=== PATIENT | male | born 1940 | race Caucasian/White ===

== ENCOUNTER 2017-03-04 07:51 | Emergency (ER) | payer OTHER ==
[2017-03-04 07:59] VITALS: O2SAT 95
[2017-03-04] MEDS ORDERED: DIAZEPAM 10 MG/2 ML SYR IVP ONE (08:29)
[2017-03-04 08:38] LABS: PLATELET COUNT 161 10^3/uL (150-400)
[2017-03-04] MEDS ORDERED: NS 1,000 ML IV ONE (08:38)
--- NOTE | 2017-03-04 08:44 | EDPHY ---
H & P Time Seen by Provider: 03/04/17 08:03 HPI/ROS: CHIEF COMPLAINT: Severe thigh pain HISTORY OF PRESENT ILLNESS: 76-year-old male presents to the emergency department with severe pain his left thigh. The patient had micro diskectomy at L1 L3-3 days ago. He was doing well until the following evening when he developed pain in his left thigh. Pain is excruciating when he tries to bear weight in the left leg. He not have any bowel or bladder incontinence. States that he was up frequently urinating throughout the night, however he has no dysuria or hematuria. He did not have a Mejia catheter with surgery 3 days ago. No fevers or chills. He does not feel weak in his lower legs. He has been taking the pain medication as prescribed. He had a normal bowel movement yesterday. Has had multiple back surgeries and has never had this type of feeling postoperatively. He had a Reuben Saenz drain that was removed yesterday with very little fluid. There is no drainage from the dressing. No chest or difficulty breathing. Denies feeling weak. REVIEW OF SYSTEMS: Constitutional: No fever, no chills. Eyes: No double or blurry vision. ENT: No sore throat. Respiratory: No cough, no shortness of breath. Cardiac: No chest pain. Gastrointestinal: No abdominal pain, vomiting or diarrhea. Genitourinary: No dysuria. Musculoskeletal: No neck or back pain. Skin: No rashes. Neurological: No headache. Past Medical/Surgical History: Multiple back surgery including microdiskectomy 3 days ago L1-[address] Miah Pritchard, orthopedic surgeries Social History: Smoking Status: Never smoked Physical Exam: General Appearance: Alert, no distress. Eyes: Pupils equal and round. Extraocular motions are all intact. ENT: Mouth: Mucous membranes moist. Respiratory: No wheezing, rhonchi, or rales, lungs are clear to auscultation. Cardiovascular: Regular rate and rhythm. Gastrointestinal: Abdomen is soft and nontender, no masses, no rebound or guarding, bowel sounds normal. Neurological: Alert and oriented x 3, cranial nerves II through XII grossly intact Skin: Warm and dry, no rashes. Musculoskeletal: Nontender to palpate along the cervical, thoracic or lumbar spine. Neck is supple. Extremities: Full range of motion and no peripheral edema. No pain with straight leg raise. No pain with external or internal rotation of the left leg. Normal and equal strength for the lower extremities bilaterally. He has more hyper reflexive on the left care to the right. He has normal sensation to light touch with normal 2 point discrimination. There is no obvious swelling or pedal edema noted in his left lower extremity. Psychiatric: Patient is oriented X 3, there is no agitation. Constitutional: Initial Vital Signs Temperature (C) 36.8 C 03/04/17 07:55 Heart Rate 75 03/04/17 07:55 Respiratory Rate 18 03/04/17 07:55 Blood Pressure 159/83 H 03/04/17 07:55 O2 Sat (%) 95 03/04/17 07:55 O2 Delivery Mode Room Air Allergies/Adverse Reactions: No Allergies [NKDA] Allergy (Verified 03/04/17 07:54) Home Medications: Medication Instructions Recorded ALPRAZolam [Xanax] 1 mg PO HS 06/29/10 Aspirin [Aspirin 81mg] 81 mg PO DAILY 06/29/10 Acetaminophen [Tylenol Tablet] 1,000 mg PO Q8 02/27/13 Cholecalciferol Vit D3 [Vitamin D3 1,000 units PO Q2D 02/27/13 1000 units (OTC)] Coenzyme Q10 [Co Q-10 30 mg (OTC)] 30 mg PO DAILY 02/27/13 Glucosamine Sulfate 1,000 mg PO BID 02/27/13 Multivitamins [Tab-A-Gunner] 1 each PO Q2D 02/27/13 Commerce-3 Fatty Acids/Fish Oil [Fish 1 each PO DAILY 02/27/13 Oil 1,000 mg Capsule] Psyllium Husk (with Sugar) 1 each PO DAILY 02/27/13 [Metamucil Packet] Diazepam [Valium] 5 mg PO TIDPRN PRN #15 tab 03/04/17 Flomax 03/04/17 Keflex 03/04/17 LYRICA 03/04/17 Oxycodone HCl 03/04/17 Medical Decision Making - Diagnostics Imaging Results: Imaging Impressions Extremity Venous Study 03/04/17 08:29 Impression: No deep venous thrombosis left leg. Results called and discussed with Calli Arevalo PA-C, at 03/04/2017 9:14. Ultrasound of the left lower extremity reveals no evidence of DVT. This was reported to me by Dr. Hall at 9:15 a.m.. Imaging: Discussed imaging studies w/ bingo caller Radiologist ED Course/Re-evaluation: 76-year-old male presents to the emergency department with severe left thigh pain. He had recent back surgery by Dr. Mati macias the since heel. Patient denies any known trauma or injury. He has pain especially when he tries to bear weight. I spoke with Dr. Munir Lauren, on-call neurosurgeon, who did not recommend repeating the MRI of the patient's lumbar spine. He recommended obtaining ultrasound to make sure the patient does not have a DVT. CBC and chemistries were unremarkable. Urinalysis reveals no signs of infection. The patient was given 2.5 mg of IV Valium. He was feeling better. He was able to ambulate. I did offer admission to the hospital, however the patient declined. He like to be discharged home with follow-up as an outpatient with Dr. Miah Pritchard. Differential Diagnosis: Back pain including but not limited to muscular pain, herniated disc, spine fracture, intra-abdominal causes and urinary tract infection. - Data Points Laboratory Results: Laboratory Results 03/04/17 08:30 03/04/17 08:30 03/04/17 03/04/17 03/04/17 08:47 08:30 08:30 WBC 9.08 10^3/uL 10^3/uL (3.80-9.50) RBC 4.83 10^6/uL 10^6/uL (4.40-6.38) Hgb 16.0 g/dL g/dL (13.7-17.5) POC Hgb Hct 42.7 % % (40.0-51.0) POC Hct MCV 88.4 fL fL (81.5-99.8) MCH 33.1 pg pg (27.9-34.1) MCHC 37.5 g/dL H g/dL (32.4-36.7) RDW 12.5 % % (11.5-15.2) Plt Count 161 10^3/uL 10^3/uL (150-400) MPV 8.7 fL fL (8.7-11.7) Neut % (Auto) 78.4 % H % (39.3-74.2) Lymph % (Auto) 11.5 % L % (15.0-45.0) [place] % (Auto) 8.5 % % (4.5-13.0) Eos % (Auto) 0.7 % % (0.6-7.6) Baso % (Auto) 0.6 % % (0.3-1.7) Nucleat RBC Rel Count 0.0 % % (0.0-0.2) Absolute Neuts (auto) 7.13 10^3/uL H 10^3/uL (1.70-6.50) Absolute Lymphs (auto) 1.04 10^3/uL 10^3/uL (1.00-3.00) Absolute Monos (auto) 0.77 10^3/uL 10^3/uL (0.30-0.80) Absolute Eos (auto) 0.06 10^3/uL 10^3/uL (0.03-0.40) Absolute Basos (auto) 0.05 10^3/uL 10^3/uL (0.02-0.10) Absolute Nucleated RBC 0.00 10^3/uL 10^3/uL (0-0.01) Immature Gran % 0.3 % % (0.0-1.1) Immature Gran # 0.03 10^3/uL 10^3/uL (0.00-0.10) POC Sodium Sodium 137 mEq/L mEq/L (134-144) POC Potassium Potassium 3.7 mEq/L mEq/L (3.5-5.2) POC Chloride Chloride 102 mEq/L mEq/L (97-110) Carbon Dioxide 24 mEq/l mEq/l (22-31) Anion Gap 11 mEq/L mEq/L (8-16) POC BUN BUN 15 mg/dL mg/dL (7-23) Creatinine 0.8 mg/dL mg/dL (0.7-1.3) POC Creatinine Estimated GFR > 60 Glucose 123 mg/dL H mg/dL (70-100) POC Glucose Calcium 9.2 mg/dL mg/dL (8.5-10.4) Urine Color YELLOW Urine Appearance CLEAR Urine pH 6.0 (5.0-7.5) Ur Specific [place] 1.017 (1.002-1.030) Urine Protein NEGATIVE (NEGATIVE) Urine Ketones NEGATIVE (NEGATIVE) Urine Blood NEGATIVE (NEGATIVE) Urine Nitrate NEGATIVE (NEGATIVE) Urine Bilirubin NEGATIVE (NEGATIVE) Urine Urobilinogen NEGATIVE EU EU (0.2-1.0) Ur Leukocyte Esterase NEGATIVE (NEGATIVE) Urine RBC 1-3 /hpf /hpf (0-3) Urine WBC 1-3 /hpf /hpf (0-3) Ur Epithelial Cells NONE SEEN /lpf /lpf (NONE-1+) Urine Mucus TRACE /lpf /lpf (NONE-1+) Urine Glucose NEGATIVE (NEGATIVE) 03/04/17 08:27 WBC RBC Hgb POC Hgb 15.0 gm/dL gm/dL (13.7-17.5) Hct POC Hct 44 % % (40-51) MCV MCH MCHC RDW Plt Count MPV Neut % (Auto) Lymph % (Auto) [place] % (Auto) Eos % (Auto) Baso % (Auto) Nucleat RBC Rel Count Absolute Neuts (auto) Absolute Lymphs (auto) Absolute Monos (auto) Absolute Eos (auto) Absolute Basos (auto) Absolute Nucleated RBC Immature Gran % Immature Gran # POC Sodium 138 mEq/L mEq/L (134-144) Sodium POC Potassium 3.5 mEq/L mEq/L (3.3-5.0) Potassium POC Chloride 101 mEq/L mEq/L (97-110) Chloride Carbon Dioxide Anion Gap POC BUN 14 mg/dL mg/dL (7-23) BUN Creatinine POC Creatinine 0.8 mg/dL mg/dL (0.7-1.3) Estimated GFR Glucose POC Glucose 134 mg/dL H mg/dL (70-100) Calcium Urine Color Urine Appearance Urine pH Ur Specific Deb[place] Urine Protein Urine Ketones Urine Blood Urine Nitrate Urine Bilirubin Urine Urobilinogen Ur Leukocyte Esterase Urine RBC Urine WBC Ur Epithelial Cells Urine Mucus Urine Glucose Medications Given: Discontinued Medications Diazepam (Valium Injection) 2.5 mg IVP EDNOW ONE Stop: 03/04/17 08:30 Last Admin: 03/04/17 08:57 Dose: 2.5 mg Sodium Chloride (Ns) 1,000 mls @ 0 mls/hr IV ONCE ONE PRN Reason: Wide Open Stop: 03/04/17 08:39 Last Admin: 03/04/17 08:58 Dose: 1,000 mls Point of Care Test Results: 03/04/17 08:27 POC Sodium 138 POC Potassium 3.5 POC Chloride 101 POC BUN 14 POC Creatinine 0.8 POC Glucose 134 H Departure - Departure Disposition: Home, Routine, Self-Care Clinical Impression: Left thigh pain Condition: Good Instructions: Musculoskeletal Pain (ED) Additional Instructions: Valium 2.5 - 5 mg every 8 hr as needed for pain. Follow up tomorrow or Sunday with Dr. Miah Pritchard. Return to the emergency department if he developed worsening pain, numbness or tingling in your toes, feelings of weakness in her legs, bowel or bladder incontinence, or if you feel worse in any way. Referrals: CARLINE MARRERO [Other] - As per Instructions Miah Pritchard MD [Medical Doctor] - 1-2 days without fail Prescriptions: Diazepam [Valium] 5 mg PO TIDPRN PRN #15 tab PRN Reason: P.r.n. spasms
[2017-03-04 10:57] VITALS: BP 178/86; PULSE 68; RESP 16; TEMP 99
== END 2017-03-04 11:12 | disposition home or self-care (01) ==
PROC: 3E0337Z Introduction of Electrolytic and Water Balance Substance into Peripheral Vein, Percutaneous Approach (ICD-10-PCS; principal; 2017-03-04)
DX: M79.652 Pain in left thigh (principal); Z79.82 Long term (current) use of aspirin
CPT/HCPCS: 82947-QW

== ENCOUNTER 2017-03-08 09:00 | Day surgery (SDC) | payer OTHER ==
[2017-03-08] MEDS ORDERED: MIDAZOLAM 2 MG/2 ML VIAL IVP PRN (09:39)
[2017-03-08] MEDS ORDERED: HEPARIN 10,000 UNIT/10 ML MDV IVP PRN (09:39)
[2017-03-08] MEDS ORDERED: GLUCAGON HCL 1 MG VIAL IVP PRN (09:39)
[2017-03-08] MEDS ORDERED: FLUMAZENIL 0.5 MG/5 ML MDV IVP PRN (09:39)
[2017-03-08] MEDS ORDERED: ALTEPLASE 2 MG VIAL IVP PRN (09:39)
[2017-03-08] MEDS ORDERED: MEPERIDINE 25 MG/ML SYR IVP PRN (09:39)
[2017-03-08] MEDS ORDERED: NALOXONE HCL 0.4 MG/ML INJ IVP PRN (09:39)
[2017-03-08] MEDS ORDERED: PROTAMINE SULFATE 50 MG/5 ML VIAL IVP PRN (09:39)
[2017-03-08] MEDS ORDERED: fentaNYL 100 MCG/2 ML INJ IVP PRN (09:39)
[2017-03-08] MEDS ORDERED: NS 1,000 ML IV SCH (09:45)
[2017-03-08] MEDS ORDERED: MIDAZOLAM 2 MG/2 ML VIAL ONE ×2 (09:51→12:01)
[2017-03-08] MEDS ORDERED: FLUMAZENIL 0.5 MG/5 ML MDV IVP ONE (09:51)
[2017-03-08] MEDS ORDERED: NALOXONE HCL 0.4 MG/ML INJ ONE (09:51)
[2017-03-08] MEDS ORDERED: ONDANSETRON 4 MG/2 ML VIAL ONE (09:51)
[2017-03-08] MEDS ORDERED: fentaNYL 100 MCG/2 ML INJ ONE ×2 (09:52→12:01)
[2017-03-08 10:05] LABS: INR 1.06 (0.83-1.16)
--- NOTE | 2017-03-08 10:50 | PDGENHP ---
History & Physical Chief Complaint: Left thigh pain History of Present Illness: 76 yo M w LBP s/p L1-3 microdiscectomy/ hemilaminectomy 1 wk ago. Did well immediately post-op but developed excruciating left thight pain 2-3 days afterwards. Improves when he lies on his thigh. MRI 03/05/17 demonstrated small collection and mass effect on the left thecal sac at L2-3 level, as well as a midline superficial subq collection from L1-3. Asp and/or drainage of both collections requested by KONSTANTIN Whitley. Pertinent Past, Social, Family History: Non-contributory Relevant Physical Exam: Numbness along anterior thights, which pt says is his baseline (not new) Cardiorespiratory Assessment: RRR, normal resp effort
--- NOTE | 2017-03-08 10:53 | PDPROPOC ---
Sedation Plan of Care Sedation Plan of Care: vital signs stable, mental status noted, patient educated of risks, benefits, alternatives, patient can tolerate sedation ASA Classification: ASA 3 Planned drugs: fentanyl, midazolam Mallampati Score: Class 2 Mallampati Reference Image: Patient passed 3-3-2 rule?: Yes
[2017-03-08] MEDS ORDERED: IOPAMIDOL (ISOVUE-300) 100 ML BTL ONE (12:01)
[2017-03-08 12:20] VITALS: O2SAT 96
[2017-03-08 13:07] VITALS: BP 117/76; PULSE 82; RESP 17
[2017-03-08] MEDS ORDERED: ONDANSETRON 4 MG/2 ML VIAL IVP PRN (13:10)
[2017-03-08] MEDS ORDERED: ACETAMINOPHEN 325 MG TAB PO PRN (13:10)
--- NOTE | 2017-03-08 13:10 | PDRADPN ---
Radiology Procedure Note Date of Procedure: 03/08/17 Radiologist: Narendra Bowden Anesthesia: IV Sedation Pre-op Diagnosis: Post-op fluid collections Post-op Diagnosis: Same Indication: Left thigh pain Procedure: 1. Aspiration Lt epidural collection; 2. Aspiration midline subq collection Finding(s): See dicated report Inf/Abcess present in the surg proc area at time of surgery?: No EBL: Minimal Complications: No immediate Specimen(s): 1. Several drops (< 1 mL) dark red material from Lt epidural collection mixed with 10 mL sterile saline; 2. 18 mL serosanginous material from midline subq collection
[2017-03-08 15:16] VITALS: TEMP 98.3
== END 2017-03-08 14:30 | disposition home or self-care (01) ==
LOC: FIMAGING 09:00
PROVIDERS: ATTEND Physician Assistant Surgical
PROC: 0J973ZX Drainage of Back Subcutaneous Tissue and Fascia, Percutaneous Approach, Diagnostic (ICD-10-PCS; principal; 2017-03-08 12:58)
PROC: 009T3ZX Drainage of Spinal Meninges, Percutaneous Approach, Diagnostic (ICD-10-PCS; principal; 2017-03-08 12:58)
DX: L76.82 Other postprocedural complications of skin and subcutaneous tissue (principal); G97.82 Other postprocedural complications and disorders of nervous system
CPT/HCPCS: J2250; J2310; J2405; J3010; Q9967

== ENCOUNTER → 2017-08-23 | Outpatient (CLI) | payer OTHER ==
--- NOTE | 2017-08-23 14:34 | CPEKG ---
Heart Rate: 64 RR Interval: 938 P-R Interval: 200 QRSD Interval: 98 QT Interval: 392 QTC Interval: 405 P Hidalgo: 17 QRS Hidalgo: -56 T Wave Hidalgo: 49 EKG Severity - ABNORMAL ECG - EKG Impression: SINUS ARRHYTHMIA, RATE 52-73 EKG Impression: LEFT ANTERIOR FASCICULAR BLOCK Electronically Signed By: Jorge Sommer 24-Aug-2017 08:44:14
== END ==
LOC: FCP 14:17
PROVIDERS: ATTEND Neurological Surgery
DX: Z01.812 Encounter for preprocedural laboratory examination (principal)

== ENCOUNTER → 2017-08-23 | Outpatient (CLI) | payer OTHER | LOC: EDSTATUS 13:47 → FIMAGING 13:47 | PROVIDERS: ATTEND Neurological Surgery | DX: Z01.811 Encounter for preprocedural respiratory examination (principal) ==

== ENCOUNTER 2017-08-30 13:51 | Inpatient (IN) | payer OTHER ==
[2017-08-30] MEDS ORDERED: MAGNESIUM HYDROXIDE 30 ML UDCUP PO PRN (15:35)
[2017-08-30] MEDS ORDERED: diphenhydrAMINE 25 MG CAP PO PRN (15:35)
[2017-08-30] MEDS ORDERED: BISACODYL 10 MG SUPP PR PRN (15:35)
[2017-08-30] MEDS ORDERED: LACTULOSE 20 GM/30 ML UDCUP PO PRN (15:35)
[2017-08-30] MEDS ORDERED: ONDANSETRON DISINTEGRATING 4 MG TAB PO PRN (15:35)
[2017-08-30] MEDS: POLYETHYLENE GLYCOL 3350 17 GM PKT PO SCH ×2 (17:41→21:36)
[2017-08-30] MEDS: ceFAZolin 2 GM/DEXTROSE 100 ML IV SCH ×2 (17:41→23:55)
[2017-08-30] MEDS ORDERED: ACETAMINOPHEN 500 MG TAB ONE (18:49)
[2017-08-30] MEDS: ACETAMINOPHEN 500 MG TAB PO SCH (18:51)
[2017-08-30] MEDS: TAMSULOSIN HCL 0.4 MG CAP PO SCH (21:35)
[2017-08-30] MEDS: SENNOSIDES/DOCUSATE SODIUM TAB PO SCH (21:35)
[2017-08-30] MEDS: ALPRAZolam 1 MG TAB PO SCH (21:35)
[2017-08-30] MEDS: FAMOTIDINE 20 MG TAB PO SCH (21:36)
[2017-08-30] MEDS: oxyCODONE IR 5 MG TAB PO PRN (21:50)
[2017-08-30] MEDS: METHOCARBAMOL 750 MG TAB PO PRN (21:50)
[2017-08-30] MEDS ORDERED: GABAPENTIN 300 MG CAP PO SCH (22:00)
[2017-08-30] MEDS: PREGABALIN 150 MG CAP PO SCH (22:16)
[2017-08-31 05:30] LABS: PLATELET COUNT 197 10^3/uL (150-400)
[2017-08-31] MEDS: ACETAMINOPHEN 500 MG TAB PO SCH ×3 (07:19→21:50)
[2017-08-31] MEDS: PREGABALIN 100 MG CAP PO SCH (09:30)
[2017-08-31] MEDS: SENNOSIDES/DOCUSATE SODIUM TAB PO SCH ×2 (09:32→21:49)
[2017-08-31] MEDS: FAMOTIDINE 20 MG TAB PO SCH ×2 (09:32→21:51)
[2017-08-31] MEDS: ENOXAPARIN 40 MG/0.4 ML SYR SC SCH (09:33)
[2017-08-31] MEDS: POLYETHYLENE GLYCOL 3350 17 GM PKT PO SCH ×3 (09:35→21:49)
--- NOTE | 2017-08-31 12:40 | NEUSURGPN ---
Assessment/Plan: 76 y/o male s/p L1/2 AGATA admitted from [facility] for pain control ad possible CSF leak POD1 -Keep HOB flatx5 days. Continue Mejia and use of bed pain. - MRI pending for new right IL weakness -Optimize pain management -DVT prophx: TEDs, SCDs, Lovenox -Please notify NS with any change in neuro/motor exam Subjective: low back pain, right leg weakness Objective: NAD A&Ox3 MAEx4 5/5 and equal in BUE and BLE. Incision c/d/i Catheter Insertion Date: 08/30/17 - Physician Discussed Patient with : [facility] Physical Exam - Vitals, I&O, Labs I and O 08/30/17 08/31/17 09/01/17 05:59 05:59 05:59 Intake Total 1300 Output Total 650 2200 Balance 650 -2200 Weight 88.451 kg Intake: Oral (ml) 1200 IV Infused (ml) 100 ceFAZolin 2 GM/DEXTROSE 100 100 ml @ 200 mls/hr IV [facility] Rx#:[id number] Output: Urine (ml) 650 2200 Catheter 650 2200 Other: Bladder Scan Volume (ml) Urinal 740 Vital Signs Temp Pulse Resp BP Pulse Ox 36.9 C 74 16 108/60 95 08/31/17 11:55 08/31/17 11:55 08/31/17 11:55 08/31/17 11:55 08/31/17 11:55 Laboratory Results 08/31/17 04:47 08/31/17 04:47 ICD10 Worksheet Patient Problems: Problems Problem Status Onset 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
--- NOTE | 2017-08-31 15:13 | ASMTCMCOM ---
CM Note CM Note Notes: Pt in with CSF leak, on BR until Sunday09/03/17. OT/PT eval pending. CM will follow pt for discharge planning. D/c plan of care: TBD Date Signed: 08/31/2017 03:12 PM Electronically Signed By:AMY Muniz
[2017-08-31] MEDS: METHOCARBAMOL 750 MG TAB PO PRN (18:30)
--- NOTE | 2017-08-31 19:41 | PDMN ---
Medical Necessity Medical necessity: Pt meets IP criteria per PA; est los >2 mn for eval/tx of CSF leak, R leg weakness & pain s/p L1-L2 laminectomy; requiring MRI, further monitoring, bedrest w/head of bed flat x5 days & pain management; per progress note & order 08/30/17
[2017-08-31] MEDS: PREGABALIN 150 MG CAP PO SCH (21:51)
[2017-08-31] MEDS: TAMSULOSIN HCL 0.4 MG CAP PO SCH (21:53)
[2017-08-31] MEDS: ALPRAZolam 1 MG TAB PO SCH (21:53)
[2017-09-01] MEDS: ACETAMINOPHEN 500 MG TAB PO SCH ×3 (06:02→21:00)
--- NOTE | 2017-09-01 08:01 | SOAPPROG ---
WILDER Progress Note Assessment/Plan: Assessment: POD#2 s/p L1-2 bilateral hemilaminotomy/microdiscectomy complicated by CSF leak Plan: - continue flat bedrest for now - monitor right HF weakness, seems improved although patient does not think there has been any change - bowel management, patient wants to use home fleets enema which is fine - will increase NSAIDs for pain control - MRI shows what appears to be some residual disc fragment at L1-2 with severe foraminal stenosis, not clear if this may be contributing to HF weakness, although right leg pain is has completely resolved - lovenox for DVT ppx - Dr. Puentes will discuss further plans with the patient this morning. 09/01/17 07:58 Subjective: no new events, c/o pain and concerned about the right HF Objective: Vital Signs Temp Pulse Resp BP Pulse Ox 36.8 C 72 18 135/66 H 93 09/01/17 07:43 09/01/17 07:43 09/01/17 07:43 09/01/17 07:43 09/01/17 07:43 Laboratory Results 08/31/17 04:47 08/31/17 04:47 08/31/17 09/01/17 09/02/17 05:59 05:59 05:59 Intake Total 1300 Output Total 650 2525 Balance 650 -2525 AAOx3, full strength and sensation except right hip flexor (able to raise leg with knee bent but cannot raise with leg straight, 4-/5, dressings c/d/i ICD10 Worksheet Patient Problems: Problems Problem Status Onset 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
[2017-09-01] MEDS: POLYETHYLENE GLYCOL 3350 17 GM PKT PO SCH ×3 (08:45→20:52)
[2017-09-01] MEDS: SENNOSIDES/DOCUSATE SODIUM TAB PO SCH ×2 (08:47→20:50)
[2017-09-01] MEDS: FAMOTIDINE 20 MG TAB PO SCH ×2 (08:48→20:50)
[2017-09-01] MEDS: PREGABALIN 100 MG CAP PO SCH (08:48)
[2017-09-01] MEDS: ENOXAPARIN 40 MG/0.4 ML SYR SC SCH (08:48)
--- NOTE | 2017-09-01 09:15 | GPROG ---
[f rep st] PROGRESS NOTE NEUROSURGERY PROGRESS NOTE DATE OF SERVICE: 09/01/2017 The patient was seen and examined and has ongoing right hip flexor weakness. He has 5/5 strength otherwise in his lower extremities. He is complaining of back pain radiating into both his legs that got worse this morning. His motor exam has been stable for the past several days. His MRI from yesterday was reviewed in detail and also discussed with my partner Dr. Jf aLuren. 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 The disk herniation is smaller. I was able to remove part of the free fragment disk herniation in the surgery last week, but as suspected, I did not get it all. So, he has some ongoing neural foraminal stenosis and impingement from the disk herniation in addition to a suspected CSF leak. I have discussed all this with the patient and the fact that there is no possible way to get this anterior central disk herniation out through a minimally invasive approach such as the one I used last week. He needs a much more aggressive surgery with a facetectomy and partial transpedicular approach with a fusion versus an anterior lateral approach with a general surgery exposure. I explained to the patient that it is possible I can get the rest of the disk through the transforaminal approach with a much bigger incision. Part of the problem is he is obese and working through a deep wound with a small incision in the midline, it was nearly impossible to get the proper angle. Because this is at L1-2 and not lower, I have the conus to worry about and cannot be overly aggressive with the retraction or I would cause even more neurologic deficit. The MRI does show that the conus ends a little above this but I think extreme caution still needs to be exercised. All this was discussed with the patient as well as the timing of the surgery. I do think that he has a CSF leak. There was an extensive amount of scar tissue and this is part of the problem as well with getting the herniation out. I think it is in his best interest to give the CSF leak a couple more days to seal up and then attempt a more aggressive surgery. I think it is reasonable to proceed with the transforaminal approach with a much bigger incision and a more lateral exposure with a facetectomy and partial drilling down the pedicle to get out laterally. If this does not work, he may still need an anterior lateral approach, but I think that is a much bigger surgery, and if I were the patient, I would try the smaller surgery first. We will shoot for Sunday to try to get this done for now. In the meantime, we will keep him on Lovenox and stop the Lovenox Sunday. This is a tough case and there is no precise right or wrong answer as to what to do here. I am not 100% sure that this surgery will actually get the rest of the free fragment out, but I am hopeful. We will also possibly put a lumbar drain in at the time of the surgery if there is evidence of CSF leaking, which I am hopeful there will not be. I am also considering an intradural exposure on the next surgery if I am unable to located the remainder of what I think is at least partially a free fragment. I intend to discuss this with some of my partners as well and see what they think. /[id number]/MODL MTDD
[2017-09-01] MEDS: oxyCODONE IR 5 MG TAB PO PRN ×2 (10:30→11:09)
[2017-09-01] MEDS: METHOCARBAMOL 750 MG TAB PO PRN ×3 (12:12→20:52)
[2017-09-01] MEDS: TAMSULOSIN HCL 0.4 MG CAP PO SCH (20:50)
[2017-09-01] MEDS: PREGABALIN 150 MG CAP PO SCH (20:50)
[2017-09-01] MEDS: ALPRAZolam 1 MG TAB PO SCH (20:50)
[2017-09-02] MEDS: ACETAMINOPHEN 500 MG TAB PO SCH ×3 (05:46→21:06)
--- NOTE | 2017-09-02 07:49 | NEUSURGPN ---
Date of Surgery: 08/30/17 Post Op Day: 3 Assessment/Plan: Assessment: POD #3 s/p L1-2 bilateral hemilaminotomy/microdiscectomy complicated by CSF leak Plan: -continue flat bedrest for now -monitor right HF weakness, seems improved although patient does not think there has been any change -pt spoke with Dr Puentes yesterday and plan for surgery tomorrow with a more extensive decompression and fusion -bowel management-bowel protocol -added ativan 3-4 times per day to help with anxiety and with laying flat -we increased NSAIDs for pain control -MRI shows what appears to be some residual disc fragment at L1-2 with severe foraminal stenosis, not clear if this may be contributing to HF weakness, although right leg pain has completely resolved -Lovenox for DVT ppx will hold today per Dr Hernandez note for surgery tomorrow -Dr. Puentes discussed with pt yesterday regarding plan for fusion and decompression tomorrow -will discuss with Dr Puentes the exact plan and consents will need to be done -labs ordered for tomorrow morning/NPO -warning signs given -call with any questions or concerns Subjective: Awake and alert. No montano/neck/cp/sob/abd or gu complaints. No f/c/n/v/d. Objective: AAOx3, full strength and sensation except right hip flexor (able to raise leg with knee bent but cannot raise with leg straight, 4-/5, dressings c/d/i PERRLA/EOMI no droop CN 2-12 grossly intact Neuro Check Frequency: per routine Urinary Catheter in Place: No Catheter Insertion Date: 08/30/17 - Physician Discussed Patient with : [facility] Physical Exam - Vitals, I&O, Labs I and O 09/01/17 09/02/17 09/03/17 05:59 05:59 05:59 Intake Total 1340 Output Total 2525 1525 Balance -2525 -185 Intake: Oral (ml) 1340 Output: Urine (ml) 2525 1525 Catheter 2525 1525 Other: Intake Quantity Yes Yes Sufficient Number of Stools Bedpan 1 Urinal 1 Vital Signs Temp Pulse Resp BP Pulse Ox 36.8 C 62 16 122/64 H 91 L 09/02/17 00:00 09/02/17 00:00 09/02/17 00:00 09/02/17 00:00 09/02/17 00:00 Laboratory Results 08/31/17 04:47 08/31/17 04:47 ICD10 Worksheet Patient Problems: Problems Problem Status Onset 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
[2017-09-02] MEDS ORDERED: LORazepam 2 MG/ML INJ IVP ONE (07:57)
[2017-09-02] MEDS: FAMOTIDINE 20 MG TAB PO SCH ×2 (08:20→21:06)
[2017-09-02] MEDS: POLYETHYLENE GLYCOL 3350 17 GM PKT PO SCH ×3 (08:20→21:07)
[2017-09-02] MEDS: PREGABALIN 100 MG CAP PO SCH (08:20)
[2017-09-02] MEDS: ENOXAPARIN 40 MG/0.4 ML SYR SC SCH (08:21)
[2017-09-02] MEDS: METHOCARBAMOL 750 MG TAB PO PRN ×3 (08:32→22:17)
[2017-09-02] MEDS: LORazepam 2 MG/ML INJ IVP PRN ×2 (10:35→18:14)
[2017-09-02] MEDS: SENNOSIDES/DOCUSATE SODIUM TAB PO SCH ×2 (10:38→21:06)
--- NOTE | 2017-09-02 14:38 | ASMTCMCOM ---
CM Note CM Note Notes: Patient continues on bed rest, plan for surgery tomorrow. CM met with patient and Leonor Galvez. They do not have experience with HH or SNF, they are aware they will likely be discharged with therapies. They live in [facility]. Discharge continues to be TBD. CM to follow. D/C Plan: TBD Date Signed: 09/02/2017 02:38 PM Electronically Signed By:Berkley Torres
[2017-09-02] MEDS: PREGABALIN 150 MG CAP PO SCH (21:06)
[2017-09-02] MEDS: TAMSULOSIN HCL 0.4 MG CAP PO SCH (21:06)
[2017-09-02] MEDS: ALPRAZolam 1 MG TAB PO SCH (21:06)
[2017-09-03] MEDS: LORazepam 2 MG/ML INJ IVP PRN ×3 (00:03→20:08)
[2017-09-03 06:14] LABS: INR 1.03 (0.83-1.16); PROTIME(PATIENT) 13.7 SEC (12.0-15.0)
[2017-09-03] MEDS: ACETAMINOPHEN 500 MG TAB PO SCH ×3 (06:18→22:55)
[2017-09-03] MEDS: METHOCARBAMOL 750 MG TAB PO PRN ×2 (06:22→21:17)
[2017-09-03] MEDS: SENNOSIDES/DOCUSATE SODIUM TAB PO SCH ×2 (08:32→21:15)
[2017-09-03] MEDS: PREGABALIN 100 MG CAP PO SCH (08:32)
[2017-09-03] MEDS: FAMOTIDINE 20 MG TAB PO SCH ×2 (08:32→21:17)
[2017-09-03] MEDS: ONDANSETRON 4 MG/2 ML VIAL IVP PRN ×2 (08:42→21:12)
[2017-09-03] MEDS: POLYETHYLENE GLYCOL 3350 17 GM PKT PO SCH ×3 (08:51→22:04)
--- NOTE | 2017-09-03 09:32 | NEUSURGPN ---
Assessment/Plan: Assessment/Plan: Assessment: POD #3 s/p L1-2 bilateral hemilaminotomy/microdiscectomy complicated by CSF leak Plan: -To OR later today for L1/2 TLIF and possible placement of lumbar drain -Continue bedrest for now -All risks, benefits, and alternatives discussed, consents signed -monitor right HF weakness, seems improved although patient does not think there has been any change -pt spoke with Dr Puentes yesterday and plan for surgery tomorrow with a more extensive decompression and fusion -bowel management-bowel protocol -added ativan 3-4 times per day to help with anxiety and with laying flat -we increased NSAIDs for pain control -MRI shows what appears to be some residual disc fragment at L1-2 with severe foraminal stenosis, not clear if this may be contributing to HF weakness, although right leg pain has completely resolved -Lovenox held -labs ordered for tomorrow morning/NPO -warning signs given -call with any questions or concerns Subjective: Awake and alert, having more back spasms and pain this morning. Eager for surgery later today. Objective: AAOx3, full strength and sensation except right hip flexor (able to raise leg with knee bent but cannot raise with leg straight, 4-/5, dressings c/d/i PERRLA/EOMI no droop CN 2-12 grossly intact Incision c/d/i Catheter Insertion Date: 08/30/17 - Physician Discussed Patient with : [facility] Physical Exam - Vitals, I&O, Labs I and O 09/02/17 09/03/17 09/04/17 05:59 05:59 05:59 Intake Total 1340 700 Output Total 1525 3600 Balance -185 -2900 Intake: Oral (ml) 1340 700 Output: Urine (ml) 1525 3600 Catheter 1525 3600 Other: Intake Quantity Yes Yes Sufficient Number of Voids Catheter 1 Number of Stools Bedpan 1 1 Vital Signs Temp Pulse Resp BP Pulse Ox 36.8 C 70 16 137/68 H 94 09/03/17 07:51 09/03/17 07:51 09/03/17 07:51 09/03/17 07:51 09/03/17 07:51 Laboratory Results 09/03/17 04:51 09/03/17 04:51 ICD10 Worksheet Patient Problems: Problems Problem Status Onset 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
[2017-09-03] MEDS ORDERED: NS 1,000 ML IV SCH ×2 (10:30→19:30)
[2017-09-03] MEDS ORDERED: LR 1,000 ML IV ONE ×2 (12:17→14:14)
[2017-09-03] MEDS ORDERED: CHLORHEXIDINE GLUC HIBICLENS 118 ML BTL TP ONE (14:06)
[2017-09-03] MEDS ORDERED: BUPIVACAINE 0.25% 30 ML SDV ONE ×2 (14:06→19:02)
[2017-09-03] MEDS ORDERED: EPINEPHrine 1 MG/ML INJ ONE (14:07)
[2017-09-03] MEDS ORDERED: BACITRACIN 50,000 UNITS/10 ML SYR IRR ONE (14:07)
[2017-09-03] MEDS ORDERED: THROMBIN (BOVINE) 5,000 UNIT VIAL TP ONE ×2 (14:07→17:36)
[2017-09-03] MEDS ORDERED: CITRATE DEXTROSE SOLN 500 ML BAG ONE ×3 (14:07→16:26)
[2017-09-03] MEDS ORDERED: MIDAZOLAM 2 MG/2 ML VIAL ONE (14:20)
[2017-09-03] MEDS ORDERED: fentaNYL 100 MCG/2 ML INJ ONE ×2 (14:20→19:07)
[2017-09-03] MEDS ORDERED: PROPOFOL 200 MG/20 ML VIAL ONE (14:25)
[2017-09-03] MEDS ORDERED: PROPOFOL/EMULSION 500 MG/50 ML BOTTLE IV ONE ×3 (14:25→18:24)
[2017-09-03] MEDS ORDERED: ONDANSETRON 4 MG/2 ML VIAL ONE (14:27)
[2017-09-03] MEDS ORDERED: METOCLOPRAMIDE 10 MG/2 ML VIAL ONE (14:27)
[2017-09-03] MEDS ORDERED: ROCURONIUM 50 MG/5 ML VIAL ONE (14:27)
[2017-09-03] MEDS ORDERED: CEFAZOLIN 2 GM/DEXTROSE/100 ML BAG IV ONE (14:35)
--- NOTE | 2017-09-03 15:02 | PDANEPAE ---
ANE Past Medical History - Cardiovascular History Hx Hypertension: No Hx Arrhythmias: No Hx Chest Pain: No Hx Coronary Artery / Peripheral Vascular Disease: No Hx CHF / Valvular Disease: No Hx Palpitations: No Cardiovascular History Comment: htn- on meds, well controlled. bp 106/57. denies chest pain. denies palps. - Pulmonary History Hx COPD: No Hx Asthma/Reactive Airway Disease: No Hx Recent Upper Respiratory Infection: No Hx Oxygen in Use at Home: No Hx Sleep Apnea: No Sleep Apnea Screening Result - Last Documented: Negative Pulmonary History Comment: denies sob up 2 flights. - Neurologic History Hx Cerebrovascular Accident: No Hx Seizures: No Hx Dementia: No Neurologic History Comment: Numbness bilateral lower extremeties - Endocrine History Hx Diabetes: No Endocrine History Comment: . - Renal History Hx Renal Disorders: No - Liver History Hx Hepatic Disorders: No - Neurological & Psychiatric Hx Hx Neurological and Psychiatric Disorders: No - Cancer History Hx Cancer: No - Congenital Disorder History Hx Congenital Disorders: No - GI History Hx Gastrointestinal Disorders: Yes Gastrointestinal History Comment: ibs- controlled c diet, meds-alprazolam. - Other Health History Other Health History: osteoarthritis. dental implants, bridge-perm. Bilateral cataract surgery 06/2016 - Chronic Pain History Chronic Pain: Yes - Surgical History Prior Surgeries: 2012 thoracic discectomy. 2012 t9-12 fusion. r shoulder arthroplasty 2008. bilat knee arthroplasty 2009. lumbar discectomy 2007. Hernia repair 97. 2015 L3,4 and 4,5 microdisk/lami. 2011 L shoulder arthroplasty ANE Review of Systems Review of Systems: ANE Patient History - Allergies Allergies/Adverse Reactions: No Allergies [NKDA] Allergy (Verified 03/04/17 07:54) - Home Medications Home Medications: ALPRAZolam [Xanax 0.5 MG (*)] 1 mg PO HS 08/30/17 [Last Taken 08/29/17] Aspirin [Aspirin 81mg (*)] 81 mg PO HS 08/30/17 [Last Taken 08/26/17] Cholecalciferol Vit D3 [Vitamin D3 (*)] 1,000 units PO HS 08/30/17 [Last Taken 08/29/17] Herbals/Supplements -Info Only 1 ea PO DAILY 08/30/17 [Last Taken 08/26/17] Multivitamins [Multivitamin (*)] 1 each PO DAILY 08/30/17 [Last Taken 08/26/17] Naproxen Sodium [Aleve 220 MG (*)] 440 mg PO BID 08/30/17 [Last Taken 08/26/17] [place]-3 Fatty Acids [Fish Oil 1000 mg (*)] 1,000 mg PO DAILY 08/30/17 [Last Taken 08/26/17] Pregabalin [Lyrica 100mg (*)] 200 mg PO DAILY 08/30/17 [Last Taken 08/30/17] Pregabalin [Lyrica 150mg (*)] 300 mg PO HS 08/30/17 [Last Taken 08/29/17] Psyllium Husk (with Sugar) [Metamucil Packet] 1 each PO BIDMEAL 08/30/17 [Last Taken 08/26/17] Tamsulosin HCl [Flomax 0.4 MG (*)] 0.4 mg PO HS 08/30/17 [Last Taken 08/26/17] - NPO status NPO Since - Liquids (Date): 09/03/17 NPO Since - Liquids (Time): 00:00 NPO Since - Solids (Date): 09/03/17 NPO Since - Solids (Time): 00:00 - Smoking Hx Smoking Status: Never smoked - Family Anes Hx Family Hx Anesthesia Complications: none ANE Labs/Vital Signs - Labs Result Diagrams: 09/03/17 04:51 09/03/17 04:51 - Vital Signs Blood Pressure: 152/76 Heart Rate: 80 Respiratory Rate: 16 O2 Sat (%): 97 Height: 177.8 cm Weight: 88.451 kg ANE Physical Exam - Airway Mallampati Score: Class 2 - ASA Status ASA Status: II ANE Anesthesia Plan Anesthesia Plan: general endotracheal anesthesia Urgent/Emergent Case: Esha bautista completed preop but documented later for safe timely pt care
[2017-09-03] MEDS ORDERED: morphINE PF 0.2 MG in SYRINGE INTRATHECAL 1 SYR IT ONE (16:04)
[2017-09-03] MEDS ORDERED: TRANEXAMIC ACID 1,000 MG in NS (SYRINGE) 50 ML IV ONE (16:04)
[2017-09-03] MEDS ORDERED: fentaNYL 50 MCG in SYRINGE INTRATHECAL 1 SYR IT ONE (16:04)
[2017-09-03] MEDS ORDERED: THROMBIN (BOVINE) 20,000 UNIT VIAL TP ONE (17:37)
[2017-09-03] MEDS ORDERED: SURGIFLO MATRIX KIT WITH THROMBIN 8 ML TP ONE (17:45)
[2017-09-03] MEDS ORDERED: NALOXONE HCL 0.4 MG/ML INJ IVP PRN ×2 (19:25→19:35)
[2017-09-03] MEDS ORDERED: LR 500 ML IV PRN (19:35)
[2017-09-03] MEDS ORDERED: PHENYLEPHRINE HCL 100 MCG/ML SYR IVP PRN (19:35)
[2017-09-03] MEDS ORDERED: ONDANSETRON 4 MG/2 ML VIAL IVP PRN (19:35)
[2017-09-03] MEDS ORDERED: fentaNYL 100 MCG/2 ML INJ IVP PRN (19:35)
--- NOTE | 2017-09-03 19:35 | SOAPPROG ---
SOAP Progress Note Assessment/Plan: Assessment: 76 yo M sp L1/2 TLIF Plan: stable keep HOB flat until 7 am 09/04/17 do NOT put ONEAL to suction will have LSO brace fit on 09/04/17 please call with neuro changes 09/03/17 19:31 Subjective: + back pain, no leg pain Objective: Vital Signs Temp Pulse Resp BP Pulse Ox 37.0 C 80 16 152/76 H 97 09/03/17 14:15 09/03/17 15:02 09/03/17 15:02 09/03/17 15:02 09/03/17 15:02 Laboratory Results 09/03/17 04:51 09/03/17 04:51 09/02/17 09/03/17 09/04/17 05:59 05:59 05:59 Intake Total 1340 700 Output Total 1525 3600 1100 Balance -185 -2900 -1100 PT 13.7 SEC (12.0-15.0) 09/03/17 04:51 INR 1.03 (0.83-1.16) 09/03/17 04:51 somnolent PERRL, no facial droop LANDEN x4 + light touch ICD10 Worksheet Patient Problems: Problems Problem Status Onset 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
--- NOTE | 2017-09-03 19:36 | POSTANESTH ---
Post Anesthetic Evaluation Cardiovascular Status: Similar to Pre-Op Cond Respiratory Status: Normal, Stable Level of Consciousness/Mental Status: Can Participate in Eval Pain Control: Adequate, Prn Tx Ordered Nausea/Vomiting Control: Adequate, Prn Tx Ordered Complications Possibly Related to Anesthesia: None Noted
--- NOTE | 2017-09-03 19:47 | GOP ---
[f rep st] OPERATIVE REPORT DATE OF OPERATION: 09/03/2017 SURGEON: Miah Pritchard MD NEUROSURGEON: Miah Pritchard MD [employer] SUPERVISOR: NBA Maravilla. ANESTHESIA: General endotracheal. PREOPERATIVE DIAGNOSIS: Persisting L1-2 disk herniation and central canal neural foraminal encroachm ent with ongoing bilateral lower extremity radiculopathy and right-sided iliopsoas weakness. POSTOPERATIVE DIAGNOSIS: Persisting L1-2 disk herniation and central canal neural foraminal encroach ment with ongoing bilateral lower extremity radiculopathy and right-sided iliopsoas weakness. PROCEDURE PERFORMED: Right-sided far lateral transpedicular decompression at L1-2 with an L1-2 poste rior nonsegmental (pedicle screw and axial device) fixation and posterolateral fusion with local auto graft and bone morphogenic protein. L1-2 posterior/transforaminal lumbar interbody fusion with 2 stru ctural PEEK interbody spacers, local autograft and bone morphogenic protein. Use of intraoperative m icroscopy, fluoroscopy and computer volumetric stereotactic navigation with intraoperative neurophysi ologic testing. Injection of intrathecal narcotic analgesics and subcutaneous and intramuscular loca l anesthesia for postoperative pain control. FINDINGS: ESTIMATED BLOOD LOSS: 300 cc. INDICATIONS: The patient is a 76-year-old male with intractable bilateral lower extremity radicular pain and right-sided iliopsoas weakness secondary to persistent disk herniation that I could not get out with a micro diskectomy a few days ago. He has ongoing spinal stenosis and severe neural foramin al encroachment and presents now for more aggressive decompression and stabilization procedure. DESCRIPTION OF PROCEDURE: After informed consent was obtained, the patient was taken to the Operatin g Room and placed in the prone position on the Reuben table. The thoracolumbosacral areas were prep ped and draped in sterile fashion. After fluoroscopic localization of the correct level, the subcuta neous and intramuscular tissues were infiltrated with local anesthesia. A midline linear incision wa s then created over the L1-2 spinous process. This was carried down to the fascial layer, which was incised using monopolar electrocautery and carried in a subperiosteal plane along the spinous process es and laminae bilaterally. Intraoperative fluoroscopy was utilized to verify the correct levels. F ollowing this, a right-sided far lateral transpedicular decompression was performed with complete unr oofing of the facet joint and neural foramina at L1 and L2. A left-sided redo posterior hemilaminect yuliya and foraminotomy and medial facetectomy was also performed and there was quite a bit of disk mate rial that had migrated up laterally both on the left and the right side that was carefully removed un mildred high-power microscopy. There was more disk material centrally that was carefully teased out with a [place] 4 instrument. Following an excellent decompression bilaterally the wound was copiously irrigated with antibiotic irrigation. Meticulous hemostasis was achieved as best we could . Note the patient was somewhat oozy and we gave him tranexamic acid to counteract this. The [employer] neuronavigational system was then brought in and pedicle screws were placed bilaterally at L1 and L 2. The bone screw interface was not super strong, I felt that an axial device would probably help wi th fixation and minimize the potential for hardware failure and nonunion. Once the screws were place d and good position verified with intraoperative neurophysiologic testing and biplanar fluoroscopy, r ods were placed and secured under distraction, during which time a complete diskectomy was performed at the L1-2 level with preparation of the endplates and placement of 2 structural PEEK interbody spac ers, local autograft and bone morphogenic protein for an L1-2 posterior/transforaminal lumbar interbo dy fusion. The screw and jonny system were then placed in a slight amount of compression in order to f acilitate bony union and to minimize the potential for posterior graft migration. Axial devices were then placed for added fixation. 200 mcg of Duramorph along with 50 mcg of fentanyl were injected in trathecally for postoperative pain control. The subcutaneous and intramuscular tissues were re-infil trated with local anesthesia and the transverse processes were decorticated and the residual local au tograft along with bone morphogenic protein placed out laterally. A drain was then placed and the wo und was closed in layered fashion using interrupted Vicryl sutures followed by Steri-Strips on the sk in. COMPLICATIONS: None. DISPOSITION: The patient is currently in the process of being repositioned for extubation. /[id number]/MODL
[2017-09-03] MEDS ORDERED: LORazepam 2 MG/ML INJ ONE (20:04)
[2017-09-03] MEDS: PREGABALIN 150 MG CAP PO SCH (21:14)
[2017-09-03] MEDS: ALPRAZolam 1 MG TAB PO SCH (21:17)
[2017-09-03] MEDS: TAMSULOSIN HCL 0.4 MG CAP PO SCH (21:17)
[2017-09-03] MEDS ORDERED: ACETAMINOPHEN 500 MG TAB PO SCH (22:00)
[2017-09-03] MEDS ORDERED: GABAPENTIN 300 MG CAP PO SCH (22:00)
[2017-09-03] MEDS: ceFAZolin 2 GM/DEXTROSE 100 ML IV SCH (22:01)
[2017-09-04] MEDS: LORazepam 2 MG/ML INJ IVP PRN (02:36)
[2017-09-04 05:04] LABS: PLATELET COUNT 185 10^3/uL (150-400)
[2017-09-04] MEDS: ACETAMINOPHEN 500 MG TAB PO SCH ×3 (05:16→22:02)
[2017-09-04] MEDS: ceFAZolin 2 GM/DEXTROSE 100 ML IV SCH (05:16)
[2017-09-04] MEDS: FAMOTIDINE 20 MG TAB PO SCH ×2 (08:49→20:33)
[2017-09-04] MEDS: ENOXAPARIN 40 MG/0.4 ML SYR SC SCH (08:49)
[2017-09-04] MEDS: SENNOSIDES/DOCUSATE SODIUM TAB PO SCH ×2 (08:49→20:33)
[2017-09-04] MEDS: POLYETHYLENE GLYCOL 3350 17 GM PKT PO SCH ×3 (08:51→22:02)
[2017-09-04] MEDS: PREGABALIN 100 MG CAP PO SCH (08:52)
--- NOTE | 2017-09-04 09:14 | NEUSURGPN ---
Date of Surgery: 09/03/17 Post Op Day: 1 Assessment/Plan: Assessment: 76 yo M sp L1/2 TLIF POD#1 Plan: -Raised HOB to 10 degrees at 0745, will continue to raise HOB 10 degrees/hr until 1200. If no headaches, may get oob. -PT/OT eval once able to get oob -Remove rock once able to get oob -do NOT put ONEAL to suction -will have LSO brace fit today/09/04/17 -Patient discussed with Dr Punetes please call with neuro changes Subjective: Right leg remains weak Objective: AAOx3, full strength and sensation except right hip flexor (able to raise leg with knee bent but cannot raise with leg straight, 4-/5, dressing/Incision with dermabond c/d/i ONEAL patent-not to suction PERRLA/EOMI no droop CN 2-12 grossly intact Neuro Check Frequency: per routine Urinary Catheter in Place: Yes Urinary Catheter Indication: Other (Use Comment) (bedrest) Catheter Insertion Date: 08/30/17 - Physician Discussed Patient with : [facility] Physical Exam - Vitals, I&O, Labs I and O 09/03/17 09/04/17 09/05/17 05:59 05:59 05:59 Intake Total 700 2650 Output Total 3600 2475 Balance -2900 175 Weight 88.451 kg Intake: Oral (ml) 700 500 IV Intake (ml) 2150 Output: Urine (ml) 3600 2175 Catheter 3600 2175 Estimated Blood Loss (ml) 300 Other: Intake Quantity Yes Sufficient Number of Voids Catheter 1 Number of Stools Bedpan 1 Vital Signs Temp Pulse Resp BP Pulse Ox 37.1 C 92 13 114/63 90 L 09/04/17 07:00 09/04/17 07:00 09/04/17 07:00 09/04/17 07:00 09/04/17 07:00 Laboratory Results 09/04/17 04:49 09/04/17 04:49 ICD10 Worksheet Patient Problems: Problems Problem Status Onset 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
[2017-09-04] MEDS: oxyCODONE IR 5 MG TAB PO PRN ×2 (11:51→12:41)
[2017-09-04] MEDS: METHOCARBAMOL 750 MG TAB PO PRN ×3 (11:51→23:09)
[2017-09-04] MEDS: PREGABALIN 150 MG CAP PO SCH (20:33)
[2017-09-04] MEDS: ALPRAZolam 1 MG TAB PO SCH (20:33)
[2017-09-04] MEDS: TAMSULOSIN HCL 0.4 MG CAP PO SCH (20:33)
[2017-09-05] MEDS: ACETAMINOPHEN 500 MG TAB PO SCH ×2 (05:16→15:09)
[2017-09-05] MEDS: METHOCARBAMOL 750 MG TAB PO PRN (05:16)
--- NOTE | 2017-09-05 07:56 | SOAPPROG ---
SOAP Progress Note Assessment/Plan: Assessment: 76 male POD #2 s/p L1/2 TLIF on 09/03. Right iliopsoas and quad still weak. some overnight confusion per son who stayed with him Plan: PT/OT with walker. Pt is a fall risk Needs rehab. foster care social worker to discuss with family today Continue ONEAL. Needs lumbar xrays today. 09/05/17 07:52 09/05/17 07:56 Subjective: Lying in bed asleep, wakes easily. Has not had narcotics since yesterday and expressed wishes to not have any more. Denies new weakness or tingling. He feels his right leg remains at the same weakness as immediately post op from initial surgery at [facility] [place]. Objective: Vital Signs Temp Pulse Resp BP Pulse Ox 36.8 C 93 16 140/71 H 90 L 09/05/17 03:56 09/05/17 03:56 09/05/17 03:56 09/05/17 03:56 09/05/17 03:56 Laboratory Results 09/04/17 04:49 09/04/17 04:49 09/04/17 09/05/17 09/06/17 05:59 05:59 05:59 Intake Total 2650 Output Total 2475 1325 Balance 175 -1325 PT 13.7 SEC (12.0-15.0) 09/03/17 04:51 INR 1.03 (0.83-1.16) 09/03/17 04:51 Neuro: RIght iliop: 3/5 Right quad 4/5 otherwise 5/5 sens +LT INcision: CDI, dressing dried blood - RN will change this AM ONEAL: 15ml in bulb this AM. 125ml overnight. ICD10 Worksheet Patient Problems: Problems Problem Status Onset 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
[2017-09-05] MEDS: ENOXAPARIN 40 MG/0.4 ML SYR SC SCH (08:53)
[2017-09-05] MEDS: POLYETHYLENE GLYCOL 3350 17 GM PKT PO SCH ×2 (08:54→15:11)
[2017-09-05] MEDS: PREGABALIN 100 MG CAP PO SCH (08:55)
[2017-09-05] MEDS: FAMOTIDINE 20 MG TAB PO SCH (08:55)
[2017-09-05] MEDS: SENNOSIDES/DOCUSATE SODIUM TAB PO SCH (08:56)
--- NOTE | 2017-09-05 15:27 | PDIAF ---
- Diagnosis Diagnosis: L1/2 DJD/stenosis. Status post L1/2 fusion Code Status: Full Code - Medication Management Discharge Medications: Medications to Continue on Transfer ALPRAZolam [Xanax 0.5 MG (*)] 1 mg PO HS 08/30/17 [Last Taken 08/29/17] Aspirin [Aspirin 81mg (*)] 81 mg PO HS 08/30/17 [Last Taken 08/26/17] Cholecalciferol Vit D3 [Vitamin D3 (*)] 1,000 units PO HS 08/30/17 [Last Taken 08/29/17] Herbals/Supplements -Info Only 1 ea PO DAILY 08/30/17 [Last Taken 08/26/17] Multivitamins [Multivitamin (*)] 1 each PO DAILY 08/30/17 [Last Taken 08/26/17] Naproxen Sodium [Aleve 220 MG (*)] 440 mg PO BID 08/30/17 [Last Taken 08/26/17] [place]-3 Fatty Acids [Fish Oil 1000 mg (*)] 1,000 mg PO DAILY 08/30/17 [Last Taken 08/26/17] Pregabalin [Lyrica 100mg (*)] 200 mg PO DAILY 08/30/17 [Last Taken 08/30/17] Pregabalin [Lyrica 150mg (*)] 300 mg PO HS 08/30/17 [Last Taken 08/29/17] Psyllium Husk (with Sugar) [Metamucil Packet] 1 each PO BIDMEAL 08/30/17 [Last Taken 08/26/17] Tamsulosin HCl [Flomax 0.4 MG (*)] 0.4 mg PO HS 08/30/17 [Last Taken 08/26/17] Acetaminophen [Tylenol ES 500 mg (*)] 1,000 mg PO Q8HRS tab 09/05/17 [Last Taken Unknown] Enoxaparin [Lovenox 40 MG (*)] 40 mg SC DAILY 5 Days syr 09/05/17 [Last Taken Unknown] Famotidine [Pepcid 20 MG (*)] 20 mg PO BID tab 09/05/17 [Last Taken Unknown] LORazepam [Ativan inj 2 mg/ml (*)] 1 mg IVP Q6HRS PRN inj 09/05/17 [Last Taken Unknown] Methocarbamol [Robaxin 750 mg (*)] 750 mg PO QID PRN tab 09/05/17 [Last Taken Unknown] Naloxone HCl [Narcan] 0 mg IVP PRN PRN inj 09/05/17 [Last Taken Unknown] Ondansetron Odt [Zofran Odt 4 mg (*)] 4 - 8 mg PO Q6HRS PRN tab 09/05/17 [Last Taken Unknown] Polyethylene Glycol 3350 [Miralax 17 gm (*)] 17 gm PO TID pkt 09/05/17 [Last Taken Unknown] Sennosides/Docusate Sodium [Senokot-S] 1 - 2 tab PO BID tab 09/05/17 [Last Taken Unknown] Tamsulosin HCl [Flomax 0.4 MG (*)] 0.4 mg PO HS cap 09/05/17 [Last Taken Unknown] diphenhydrAMINE [Benadryl 25 MG (*)] 25 - 50 mg PO Q6HRS PRN cap 09/05/17 [ Last Taken Unknown] oxyCODONE IR [Oxycodone Ir (*)] 5 - 10 mg PO Q4HRS PRN tab 09/05/17 [Last Taken Unknown] Discharge Medications: Refer to the Discharge Home Medication list for PRN reason. PICC Care - Routine: N/A - Orders Services needed: Physical Therapy, Occupational Therapy Diet Recommendation: no restrictions on diet Diet Texture: Regular Texture Diet Jair Stockings Discontinue Date: 09/10 Wound Care Instructions: Check incision daily. Notify Dr. Pritchard of drainage. Remove ONEAL drain Sunday09/07/17 Activity/Weight Bearing Restrictions: as tolerated in LSO brace with walker Equipment: walker, LSO brace Additional Instructions: Wear brace when out of bed No bending, lifting or twisting over 10 lbs x 6 weeks Refer to lumbar fusion post op instructions Call [phone] with any questions/concerns and to confirm post op appt. - Follow Up Care Current Providers and Referrals: Patient,NotPresent [Primary Care Provider] -
--- NOTE | 2017-09-05 15:41 | ASMTCMCOM ---
CM Note CM Note Notes: Pt medically stable for d/c to [facility]. Orders sent in [employer]. FRANCOIS Dominguez to call report. Christina with [facility] scheduled wc transport for 1700. Date Signed: 09/05/2017 03:40 PM Electronically Signed By:AMY Muniz
[2017-09-05 15:43] VITALS: BP 115/67
--- NOTE | 2017-09-06 14:47 | ASDISCHSUM ---
Discharge Information Plan Status:SNF Medically Cleared to Leave: Discharge Date:09/05/2017 05:05 PM D/C Disposition:Jail Facility ADT D/C Disposition:Jail Facility Projected Discharge Date:09/06/2017 11:00 AM Transportation at D/C:Wheelchair Van Discharge Delay Reason: Follow-Up Date:09/06/2017 11:00 AM Discharge Slot: Final Diagnosis: Placement Information Referral Type:*Jail/SNF Referral ID:[id number] Provider Name:[facility] Address 1:[address] Address 2: City:[place] Selection Factors: State:[place] Patient Contact Information Contact Name:ROSE Relationship: Address:[address] City:[place] Alternate Phone: State/Zip Code:[place] [address] Email: Financial Information Financial Class:Medicare Primary Plan Desc:MEDICARE INPATIENT Primary Plan Number:[id number] Secondary Plan Desc:TASHA Secondary Plan Number:[id number] Assessment Information [facility] CM Progress Note CM Note CM Note Notes: Pt in with CSF leak, on until Sunday09/03/17. OT/PT eval pending. CM will follow pt for discharge planning. D/c plan of care: TBD Date Signed: 08/31/2017 03:12 PM Electronically Signed By:AMY Muniz LACE LACE Length of stay for Answers: 4-6 days current admission Acuity / Level of Answers: Yes Care: Did the patient have an inpatient admission? # of Emergency department Answers: 1-2 visits in the last 6 months Score: 8 Date Signed: 09/06/2017 02:46 PM Electronically Signed By:AMY Muniz [facility] CM Progress Note CM Note CM Note Notes: Patient continues on bed rest, plan for surgery tomorrow. CM met with patient and Leonor Galvez. They do not have experience with HH or SNF, they are aware they will likely be discharged with therapies. They live in [facility]. Discharge continues to be TBD. CM to follow. D/C Plan: TBD Date Signed: 09/02/2017 02:38 PM Electronically Signed By:Berklye Torres [facility] CM Progress Note CM Note CM Note Notes: Pt medically stable for d/c to [facility]. [facility] FRANCOIS Dominguez to call report. Christina with [facility] scheduled wc transport for 1700. Date Signed: 09/05/2017 03:40 PM Electronically Signed By:AMY Muniz Intervention Information Intervention Type:*IM-Signed Date of Service:09/05/2017 03:54 PM Patient Type:Inpatient Staff Member:Yudi Sargent Hours: Discipline: Severity: Comment:
--- NOTE | 2017-09-12 15:27 | GDS ---
[f rep st] DISCHARGE SUMMARY ADMISSION DIAGNOSIS: Status post right L1-2 microdiskectomy with possible cerebral spinal fluid leak . DISCHARGE DIAGNOSIS: Status post L1-2 transforaminal lumbar interbody fusion. HISTORY AND PHYSICAL: Please see admission history and physical. HOSPITAL COURSE: Patient is a 76-year-old male who on August 30 underwent an L1-2 microdiskectomy at [facility]. He was admitted to [facility] for possible cerebrospinal flu id leak. He was kept with head of bed flat, but a postoperative MRI showed significant residual sten osis, in particular in the lateral recess. He was taken to the operating room on 09/03/2017, where patrick wei underwent an L1-2 transforaminal lumbar interbody fusion. There were no intraoperative complicatio ns, and he was admitted to the floor for observation. On the floor, he was tolerating a regular diet , and his pain was controlled with p.o. pain medications. He was discharged to [facility] on 09/05/2017. Patient was discharged with lumbar fusion instructions and recommended he return for a neurosurgical followup appointment in 10-14 days. /[id number]/MODL
== END 2017-09-05 17:05 | DRG 454 ==
LOC: PREOBSVTOIN 15:01 → F3N 15:01
PROVIDERS: ADMIT Neurological Surgery; ATTEND Neurological Surgery
PROC: 0SG1071 Fusion of 2 or more Lumbar Vertebral Joints with Autologous Tissue Substitute, Posterior Approach, Posterior Column, Open Approach (ICD-10-PCS; principal; 2017-09-03 17:30)
PROC: 00NY0ZZ Release Lumbar Spinal Cord, Open Approach (ICD-10-PCS; principal; 2017-09-03 17:30)
PROC: 3E0V0GB Introduction of Recombinant Bone Morphogenetic Protein into Bones, Open Approach (ICD-10-PCS; principal; 2017-09-03 17:30)
PROC: 01NB0ZZ Release Lumbar Nerve, Open Approach (ICD-10-PCS; principal; 2017-09-03 17:30)
PROC: 8E0WXBZ Computer Assisted Procedure of Trunk Region (ICD-10-PCS; principal; 2017-09-03 17:30)
PROC: 4A10X4G Monitoring of Central Nervous Electrical Activity, Intraoperative, External Approach (ICD-10-PCS; principal; 2017-09-03 17:30)
PROC: 0SG00AJ Fusion of Lumbar Vertebral Joint with Interbody Fusion Device, Posterior Approach, Anterior Column, Open Approach (ICD-10-PCS; principal; 2017-09-03 17:30)
DX: M51.16 Intervertebral disc disorders with radiculopathy, lumbar region (principal); G96.0 Cerebrospinal fluid leak; M62.81 Muscle weakness (generalized); E66.09 Other obesity due to excess calories; Z68.28 Body mass index [BMI] 28.0-28.9, adult; I10 Essential (primary) hypertension; K58.9 Irritable bowel syndrome, unspecified; Z98.1 Arthrodesis status; Z96.611 Presence of right artificial shoulder joint; Z96.612 Presence of left artificial shoulder joint; Z96.653 Presence of artificial knee joint, bilateral
CPT/HCPCS: 97110-GP; 97161-GP; 97166-GO; 97535-GO; C1713; G8978-GP-CJ; G8979-GP-CI; G8987-GO-CL; G8988-GO-CI; G8988-GO-CJ; J0171; J0690; J1650; J2060; J2250; J2270; J2274; J2405; J2704; J2765; J3010; J7060